=== PATIENT | male | born 1965 | race Two or more races ===

== ENCOUNTER 2019-03-23 01:31 | Emergency (ER) | payer OTHER ==
[2019-03-23 02:06] VITALS: PULSE 63; RESP 18; TEMP 97.8; O2SAT 97
[2019-03-23 02:07] VITALS: BP 144/86
--- NOTE | 2019-03-23 03:08 | ED PDOC ---
Upper Extremity Pain/Injury Time Seen by Provider: 03/23/19 02:02 Chief Complaint (Nursing): Upper Extremity Problem/Injury Chief Complaint (Provider): upper extremity problem/injury History Per: Patient History/Exam Limitations: no limitations Onset/Duration Of Symptoms: Mins (just prior to arrival) Current Symptoms Are (Timing): Still Present Severity: Moderate Additional Complaint(s): 53 year old male with no past medical history presents to the ED for an evaluation of left wrist pain that started just prior to arrival. Patent states that just prior to arrival he tripped and fell backwards onto his left wrist, causing pain and swelling to the area. Patient reports taking tylenol with codeine prior to arrival. Patient denies having numbness or weakness of the wrist. PMD: None provided Past Medical History Reviewed: Historical Data, Nursing Documentation, Vital Signs Vital Signs: Last Vital Signs Temp 97.8 F 03/23/19 02:03 Pulse 63 03/23/19 02:03 Resp 18 03/23/19 02:03 BP 144/86 03/23/19 02:03 Pulse Ox 97 03/23/19 02:03 GLENROY Report Viewed: Yes Primary Care Provider: FAMILY PROVIDER,NO - Medical History PMH: No Chronic Diseases - Family History Family History: States: No Known Family Hx - Allergies Allergies/Adverse Reactions: Allergies Allergy/AdvReac Type Severity Reaction Status Date / Time No Known Allergies Allergy Verified 03/23/19 02:06 Review of Systems ROS Statement: Except As Marked, All Systems Reviewed And Found Negative Musculoskeletal: Positive for: Other (left wrist pain and swelling) Neurological: Negative for: Weakness, Numbness Physical Exam - Reviewed Nursing Documentation Reviewed: Yes Vital Signs Reviewed: Yes - Physical Exam Appears: Positive for: Well, Non-toxic, No Acute Distress Extremity: Positive for: Other (left upper extremity: deformity to distal wrist, neurovascularly intact, able to flex and extend with some limitations, able to do a thumbs up and OK sign, able to oppose all fingers to thumb.) Neurological/Psych: Positive for: Awake, Alert, Oriented (3x) - ECG O2 Sat by Pulse Oximetry: 97 (RA) Pulse Ox Interpretation: Normal Medical Decision Making Medical Decision Makin:02 Initial impression: 53 year old male with a distal radius fracture Initial plan: * XRay wrist left 3 views * motrin tab 600 mg PO * reevaluation Reviewed imaging with who recommends close follow up. Splint place by ED wind commissioning technician, checked by me. Upon provider reevaluation patient is feeling better, is medically stable, and requires no further treatment in the ED at this time. Patient will be discharged home. Counseling was provided and all questions were answered regarding diagnosis and need for follow up with . There is agreement to discharge plan. Return if symptoms persist or worsen. Scribe Attestation: Documented by Jessica Reeves, acting as a scribe for Celestine Corrales MD. Provider Scribe Attestation: All medical record entries made by the Scribe were at my direction and personally dictated by me. I have reviewed the chart and agree that the record accurately reflects my personal performance of the history, physical exam, medical decision making, and the department course for this patient. I have also personally directed, reviewed, and agree with the discharge instructions and disposition. Disposition - Clinical Impression Clinical Impression: Distal radius fracture - Disposition Referrals: Sergio Andrade MD [Medical Doctor] - (If above number does not work, please try: ) Disposition: Routine/Home Disposition Time: 02:30 Condition: IMPROVED Instructions: Radius Fracture Forms: [employer] ([place]ian)
--- NOTE | 2019-03-23 08:39 | RAD ---
Date of service: 03/23/2019 PROCEDURE: Left Wrist Radiographs. HISTORY: fall COMPARISON: None TECHNIQUE: Three views obtained. FINDINGS: BONES: A horizontal complete minimally comminuted fracture-distal radial metaphysis noted lateral view suggests slight splinter ring of the volar and dorsal cortical fracture margins. No intra-articular extension appreciated. JOINTS: Radiocarpal arthrosis. First carpal metacarpal mild arthrosis. SOFT TISSUES: Swelling bordering fracture OTHER FINDINGS: None. IMPRESSION: Distal radial complete metaphyseal-epiphyseal fracture without radiocarpal joint extension noted. Some extension into the radial ulnar joint possible. No marked displacement or marked angulation deformity. Other findings as above.
== END 2019-03-23 03:10 | disposition home or self-care (01) ==
LOC: H.ER 01:31
DX: S52.592A Other fractures of lower end of left radius, initial encounter for closed fracture (principal); W19.XXXA Unspecified fall, initial encounter; Y92.89 Other specified places as the place of occurrence of the external cause